=== PATIENT | male | born 1935 | race Caucasian/White ===

== ENCOUNTER 2016-04-12 10:21 | Outpatient (RCR) | payer MEDICARE ==
--- OUTSIDE RECORDS SUMMARY | 2016-03-30 13:36 | XMS REPORT | Continuity of Care Document ---
Author Author [facility] Organization [facility] Address Unknown Phone Unavailable Care Team Providers Care Ferryboat Helper Name Role Phone GLENIS TUCKER DO PCP Insurance Providers Payer Name Policy Number Subscriber Name Relationship Wps Medicare [id number] Micky Pascal 18 Self / Same As Patient Blue [employer] Mc[employer] Supp [id number] Alton Pascal 18 Self / Same As Patient Advance Directives Directive Response Recorded Date/Time Advance Directives No 09/29/14 12:12pm Health Care Power of Chemical Waste Management Technician Y 09/29/14 12:12pm Organ Donor Yes 09/29/14 12:12pm Resuscitation Status DNR-Pt Request 09/29/14 12:12pm Problems No known problems or medical conditions. Medications Medication Dose Route Sig Days/Qty Instructions Order Date Discontinued Date Status Glimepiride 2 Mg PO 07,16 11/24/06 09/29/14 Discontinued Metformin HCl 1,000 Mg PO DAILY 11/24/06 09/29/14 Discontinued [Micardis Hct] 11/24/06 01/29/10 Discontinued [minoxidil] 11/24/06 01/29/10 Discontinued [cartia xt] 11/24/06 01/29/10 Discontinued Metoprolol Succinate 11/24/06 03/10/08 Discontinued Furosemide 40 Mg PO DAILY 11/24/06 08/20/13 Discontinued [klor-con 8 meq] 11/24/06 01/29/10 Discontinued Simvastatin 80 Mg PO DAILY 11/24/06 01/29/10 Discontinued Clopidogrel Bisulfate 75 Mg PO DAILY 11/24/06 09/29/14 Discontinued Aspirin 81 Mg PO DAILY 11/24/06 Active [ambien cr] PO BEDTIME PRN 11/24/06 07/08/11 Discontinued Gabapentin 400 Mg PO BEDTIME PRN 11/24/06 09/29/14 Discontinued Acetaminophen/Hydrocodone Bitart (Lorcet 5/325MG) 11/24/0602/05 Discontinued [Viagra] 11/24/06 03/10/08 Discontinued [Percocet 5/325] 11/24/06 03/10/08 Discontinued Cyclobenzaprine HCl 11/24/06 03/10/08 Discontinued Potassium Chloride 8 Meq PO DAILY 01/29/10 09/29/14 Discontinued Lisinopril/Hydrochlorothiazide 1 Tab PO DAILY 2 TABS DAILY 01/29/10 Discontinued Metoprolol Succinate (Metoprolol ER 25mg) 25 Mg PO DAILY 01/29/10 Discontinued [Simvastatin ] 40 Mg PO DAILY 01/29/10 07/08/11 Discontinued Glimepiride 1 Mg PO DAILY@DINNER 01/30/10 09/12/11 Discontinued [place]-3 Fatty Acids/Fish Oil 1 Each PO DAILY 01/30/10 07/08/11 Discontinued Cholecalciferol 2,000 Unit PO DAILY 01/30/10 Active Niacin 1,000 Mg PO DAILY 07/08/11 09/29/14 Discontinued Rosuvastatin Calcium 20 Mg PO DAILY 07/08/11 Active Nebivolol Hcl 10 Mg PO DAILY 07/08/11 Active Zolpidem Tartrate 10 Mg PO BEDTIME 07/11/11 09/29/14 Discontinued Calcium/Vitamin D 1 Tab PO TWICE A DAY 09/12/11 08/20/13 Discontinued Hydrochlorothiazide 12.5 Mg PO DAILY 09/14/11 09/29/14 Discontinued Lisinopril 20 Mg PO DAILY 09/14/11 09/29/14 Discontinued Pantoprazole Sod 40 Mg PO DAILY 09/14/11 08/20/13 Discontinued Insulin Glargine,Hum.rec.anlog 45 Unit SQ BEDTIME 08/20/13 09/29/14 Discontinued Donepezil HCl 1 Tab PO BEDTIME 08/20/13 09/29/14 Discontinued Memantine 10 Mg PO TWICE A DAY 08/20/13 Active Levothyroxine Sodium 1 Each PO DAILY 08/20/13 09/29/14 Discontinued Bicalutamide 50 Mg PO DAILY 08/20/13 Active Fish Oil 1,000 Mg PO DAILY 08/20/13 Active Potassium Chloride 8 Meq PO DAILY 09/29/14 Active Donepezil Hcl 10 Mg PO BEDTIME 09/29/14 Active Metformin Hcl 1,000 Mg PO DAILY TAKES 2 (500MG) TABLETS 09/29/14 Active Gabapentin 400 Mg PO BEDTIME 09/29/14 Active Clopidogrel Bisulfate 75 Mg PO DAILY 09/29/14 Active Insulin Glargine 50 Units SC BEDTIME 09/29/14 Active Insulin Aspart 8 Units SC BEFORE MEALS 09/29/14 Active Polysaccharide Iron Complex 150 Mg PO DAILY 09/29/14 09/29/14 Discontinued Levothyroxine Sodium 75 Mcg PO DAILY 09/29/14 Active Lisinopril/Hydrochlorothiazide 1 Tab PO TWICE A DAY 09/29/14 Active Amoxicillin/Clavulanate Potassium 1 Each PO TWICE A DAY 10 Qty Active Azithromycin (Zpak) 1 Tab PO DAILY 3 Qty 09/30/14 Active Social History Social History Problem Response Recorded Date/Time Alcohol Use Rarely Uses 09/29/2014 6:20pm Recreational Drug Use No 09/29/2014 6:20pm Recent Foreign Travel Yes 09/29/2014 6:20pm Recent Infectious Disease Exposure No 09/29/2014 6:20pm Hospitalization with Isolation Denies 09/30/2014 11:55am Sexually Transmitted Disease No 09/29/2014 6:20pm HIV/AIDS No 09/29/2014 6:20pm Smoking Status Former Smoker 09/29/2014 12:13pm Do you dip or chew tobacco? No 09/29/2014 12:13pm Query Response Start Date Stop Date Smoking Status Former Smoker 09/26/1989 Hospital Discharge Instructions Patient Instructions Physician Instructions New, Converted or Re-Newed RX: Transmitted to Pharmacy Goal/Follow Up Appt: Dr Tucker , 10/02/14 at 1100. Discharge Diet: ADA Diet Activity as Tolerated: Yes Care Plan Goal:: Dr Tucker , 10/02/14 at 1100. Plan of Care Discharge Date 09/30/14 11:45am Disposition 30 STILL A PATIENT Instructions/Education Provided Bacterial Pneumonia (ED) Prescriptions See Medications Section Functional Status Query Response Date Recorded Comprehension Ability Understands Concepts September 30, 2014 8:26am Allergies, Adverse Reactions, Alerts Allergen Type Severity Reaction Status Last Updated Oxycodone Allergy Mild Active 03/13/08 Acetaminophen Allergy Mild Active 03/13/08 Meperidine Allergy Mild ITCHING Active 01/29/10 Immunizations Name Given Type Date of Pneumonia Vaccine 07/30/10 Historical Hepatitis A No Historical Hepatitis B No Historical Tetanus Booster (TDap) Unknown Historical Vital Signs Acute Vital Signs Vital Response Date/Time Temperature (Fahrenheit) 97.2 degrees F (97.6 - 99.5) Temperature (Calculated Celsius) 36.35384 degrees C (36.4 - 37.5) Temperature Source Temporal Pulse Rate (adult) 65 bpm (60 - 90) Respiratory Rate 20 bpm (12 - 24) O2 Sat by Pulse Oximetry 93 % (88 - 100) Blood Pressure 146/77 mm Hg Pain Pain Intensity 0 Height (Feet) 5 feet Height (Inches) 5.00 inches Height (Calculated Centimeters) 165.751638 cm Weight (Pounds) 222 pounds Weight (Calculated Grams) 004816.507 gm Weight (Calculated Kilograms) 100.305594 kilograms Calculated BMI 36.61 Results Laboratory Results Test Name Result Units Flags Reference Collection Date/Time Result Date/ Time Comments White Blood Count 10.6 10^3/uL 4.3-11.0 09/30/2014 6:33am 09/30/2014 6: 42am Red Blood Count 4.70 10^6/uL 4.35-5.85 09/30/2014 6:33am 09/30/2014 6: 42am Hemoglobin 13.0 G/DL L 13.3-17.7 09/30/2014 6:33am 09/30/2014 6:42am Hematocrit 37 % L 40-54 09/30/2014 6:33am 09/30/2014 6:42am Mean Corpuscular Volume 79 FL L 80-99 09/30/2014 6:33am 09/30/2014 6: 42am Mean Corpuscular Hemoglobin 28 PG 25-34 09/30/2014 6:33am 09/30/2014 6: 42am Mean Corpuscular Hemoglobin Concent 35 G/DL 32-36 09/30/2014 6:33am 06/2014 6:42am Red Cell Distribution Width 13.4 % 10.0-14.5 09/30/2014 6:332014 6:42am Platelet Count 230 10^3/uL 130-400 09/30/2014 6:33am 09/30/2014 6:42am Mean Platelet Volume 9.1 FL 7.4-10.4 09/30/2014 6:33am 09/30/2014 6: 42am Neutrophils (%) (Auto) 69 % 42-75 09/30/2014 6:33am 09/30/2014 6:42am Lymphocytes (%) (Auto) 17 % 12-44 09/30/2014 6:33am 09/30/2014 6:42am Monocytes (%) (Auto) 13 % H 0-12 09/30/2014 6:33am 09/30/2014 6:42am Eosinophils (%) (Auto) 1 % 0-10 09/30/2014 6:33am 09/30/2014 6:42am Basophils (%) (Auto) 0 % 0-10 09/30/2014 6:09/30/2014 6:42am Neutrophils # (Auto) 7.3 X 10^3 1.8-7.8 09/30/2014 6:33am 09/30/2014 6: 42am Lymphocytes # (Auto) 1.8 X 10^3 1.0-4.0 09/30/2014 6:33am 09/30/2014 6: 42am Monocytes # (Auto) 1.3 X 10^3 H 0.0-1.0 09/30/2014 6:33am 09/30/2014 6: 42am Eosinophils # (Auto) 0.1 10^3/uL 0.0-0.3 09/30/2014 6:33am 09/30/2014 6 :42am Basophils # (Auto) 0.0 10^3/uL 0.0-0.1 09/30/2014 6:33am 09/30/2014 6: 42am Urine Color YELLOW 09/29/2014 8:25pm 09/29/2014 9:16pm Urine Clarity SLIGHTLY CLOUDY 09/29/2014 8:25pm 09/29/2014 9:16pm Urine pH 5 5-9 09/29/2014 8:25pm 09/29/2014 9:16pm Urine Specific [place] 1.015 * 1.016-1.022 09/29/2014 8:25pm 2014 9:16pm Urine Protein 2+ * NEGATIVE 09/29/2014 8:25pm 09/29/2014 9:16pm Urine Glucose (UA) NEGATIVE NEGATIVE 09/29/2014 8:25pm 09/29/2014 9: 16pm Urine RBC (Auto) 2+ * NEGATIVE 09/29/2014 8:25pm 09/29/2014 9:16pm Urine Ketones NEGATIVE NEGATIVE 09/29/2014 8:25pm 09/29/2014 9:16pm Urine Nitrite NEGATIVE NEGATIVE 09/29/2014 8:25pm 09/29/2014 9:16pm Urine Bilirubin NEGATIVE NEGATIVE 09/29/2014 8:25pm 09/29/2014 9: 16pm Urine Urobilinogen 1 MG/DL NORMAL 09/29/2014 8:25pm 09/29/2014 9:16pm Urine Leukocyte Esterase NEGATIVE NEGATIVE 09/29/2014 8:25pm 2014 9:16pm Urine RBC 0-2 /HPF 09/29/2014 8:25pm 09/29/2014 9:16pm Urine WBC RARE /HPF 09/29/2014 8:25pm 09/29/2014 9:16pm Urine Bacteria NEGATIVE /HPF 09/29/2014 8:25pm 09/29/2014 9:16pm Urine Squamous Epithelial Cells 0-2 /HPF 09/29/2014 8:25pm 2014 9:16pm Urine Crystals NONE /LPF 09/29/2014 8:25pm 09/29/2014 9:16pm Urine Casts NONE /LPF 09/29/2014 8:25pm 09/29/2014 9:16pm Urine Mucus NEGATIVE /LPF 09/29/2014 8:25pm 09/29/2014 9:16pm Urine Culture Indicated NO 09/29/2014 8:25pm 09/29/2014 9:16pm Sodium Level 137 MMOL/L 135-145 09/30/2014 6:33am 09/30/2014 7:02am Potassium Level 3.7 MMOL/L 3.6-5.0 09/30/2014 6:33am 09/30/2014 7:02am Chloride Level 103 MMOL/L 98-107 09/30/2014 6:33am 09/30/2014 7:02am Carbon Dioxide Level 23 MMOL/L 21-32 09/30/2014 6:33am 09/30/2014 7: 02am Blood Urea Nitrogen 11 MG/DL 7-18 09/30/2014 6:33am 09/30/2014 7:02am Creatinine 0.81 MG/DL 0.60-1.30 09/30/2014 6:33am 09/30/2014 7:02am BUN/Creatinine Ratio 14 09/30/2014 6:33am 09/30/2014 7:02am Estimat Glomerular Filtration Rate > 60 09/30/2014 6:33am 2014 7:02am GFR INTERPRETIVE DATA UNITS FOR ESTIMATED GFR (eGFR): mL/min/1.73 M2 REFERENCE RANGE FOR ESTIMATED GFR (eGFR) eGFR NORMAL eGFR >60 MODERATELY DECREASED eGFR 30-59 SEVERLY DECREASED eGFR 15-29 KIDNEY FAILURE <15 (OR DIALYSIS) Glucose Level 155 MG/DL H 70-105 09/30/2014 6:33am 09/30/2014 7:02am Glucometer 189 MG/DL H 70-110 09/30/2014 11:17am 09/30/2014 11:25am Calcium Level 9.5 MG/DL 8.5-10.1 09/30/2014 6:33am 09/30/2014 7:02am Total Bilirubin 0.7 MG/DL 0.1-1.0 09/30/2014 6:33am 09/30/2014 7:02am Alkaline Phosphatase 73 U/L 40-136 09/30/2014 6:33am 09/30/2014 7:02am Aspartate Amino Transf (AST/SGOT) 33 U/L 5-34 09/30/2014 6:33am 2014 7:02am Alanine Aminotransferase (ALT/SGPT) 19 U/L 0-55 09/30/2014 6:33am 09/30 7:02am Troponin I < 0.30 NG/ML <0.30 09/29/2014 12:15pm 09/29/2014 12:54pm B-Type Natriuretic Peptide 91.4 PG/ML <100.0 09/29/2014 12:15pm 2014 12:55pm Total Protein 7.1 G/DL 6.4-8.2 09/30/2014 6:33am 09/30/2014 7:02am Albumin 3.6 G/DL 3.2-4.5 09/30/2014 6:33am 09/30/2014 7:02am Procedures Procedure Status Date Provider(s) Tracing only of electrocardiogram completed 09/29/14 GLENIS TUCKER DO Encounters Encounter Location Date/Time Discharged Inpatient [facility] 09/29/14 11:40am Registered Recurring [facility] 09/26/14 12:31pm
[~2016-04-12 10:21] MED LIST: ACHD5005; ACYC400T PO; AMBIEN PO; AMOX-355 PO; AMOX500T2 PO; ASP81CT PO; AZIT-21 PO; BICA50TA PO; CALC-793 PO; CHOL10003 PO; CLOP75TA28 PO; CLPD75T PO; CYCL10TA45; DNPZ10T PO; DONE10TA41 PO; FRSM40T PO; GABA-490 PO; GBPN100C PO; GLMP1T PO; GLMP2T PO; HYDR12.56 PO; INSU100C4 SQ; INSU100I10 SC; INSU100I14 SC; IRON150C13 PO; KLOR CON 8 MEQ; LEVO75TA6 PO; LISI1TAB PO; LISI1TAB8 PO; LSNP20T PO; LVT.025T PO; MEMA10TA PO; METF-144 PO; MICARDIS HCT; MTF500TCR PO; MTP25TSR; MTP25TSR PO; NFNEB10T PO; NIA500ERT PO; OMEG1CAP51 PO; OMG1KC PO; PERCOCET 5/325; PNT40TEC PO; POTA8TAB PO; POTA8TAB6 PO; PRD20T PO; ROSU20TA14 PO; SIMVASTATIN PO; SMV20T PO; VIAGRA; ZLP10T PO; cartia xt; minoxidil
[2016-04-16] MEDS ORDERED: RIVA1PAT XX (11:33)
[2016-04-16] MEDS ORDERED: NIAC100045 PO (11:33)
== END 2016-05-03 11:08 | disposition home or self-care (01) ==
PROVIDERS: ATTEND Internal Medicine
DX: G51.0 Bell's palsy (principal)

== ENCOUNTER 2016-09-07 12:47 | Outpatient (CLI) | payer MEDICARE ==
[~2016-09-07] VITALS: Ht 167.6 cm; Wt 99.9 kg
[~2016-09-07 12:47] MED LIST changes: +NIAC100045 PO; +RIVA1PAT XX
[2016-09-07 12:50] VITALS: BP 127/66
[2016-09-07] MEDS ORDERED: IRON SUCROSE 200 MG/NS 100 ML (IVPB) IV ONE ×2 (13:30)
[2016-09-07] MEDS ORDERED: METO-351 PO (20:42)
== END 2016-09-07 15:00 | disposition home or self-care (01) ==
LOC: SDC 12:47
PROVIDERS: ATTEND Internal Medicine
DX: D50.9 Iron deficiency anemia, unspecified (principal)
CPT/HCPCS: 96365

== ENCOUNTER → 2017-02-20 | Outpatient (CLI) | payer MEDICARE ==
[~2017-02-20] MED LIST changes: +METO-351 PO
== END ==
LOC: WOUNDCARE 08:12
PROVIDERS: ATTEND Surgery
DX: E11.621 Type 2 diabetes mellitus with foot ulcer (principal); L97.512 Non-pressure chronic ulcer of other part of right foot with fat layer exposed; F03.90 Unspecified dementia, unspecified severity, without behavioral disturbance, psychotic disturbance, mood disturbance, and anxiety
CPT/HCPCS: 99213

== ENCOUNTER → 2017-02-27 | Outpatient (CLI) | payer MEDICARE | LOC: WOUNDCARE 08:56 | PROVIDERS: ATTEND Surgery | DX: E11.621 Type 2 diabetes mellitus with foot ulcer (principal); L97.512 Non-pressure chronic ulcer of other part of right foot with fat layer exposed; F03.90 Unspecified dementia, unspecified severity, without behavioral disturbance, psychotic disturbance, mood disturbance, and anxiety | CPT/HCPCS: 11042 ==

== ENCOUNTER → 2017-02-27 | Outpatient (CLI) | payer MEDICARE | LOC: CARD 10:08 | PROVIDERS: ATTEND Internal Medicine Cardiovascular Disease | DX: I25.10 Atherosclerotic heart disease of native coronary artery without angina pectoris (principal); I10 Essential (primary) hypertension; E78.2 Mixed hyperlipidemia; I34.0 Nonrheumatic mitral (valve) insufficiency | CPT/HCPCS: 93306 ==

== ENCOUNTER 2017-05-05 12:46 | Outpatient (RCR) | payer MEDICARE ==
[2017-04-28 15:01] VITALS: BP 140/74
[~2017-05-05] VITALS: Ht 165.1 cm; Wt 99.8 kg
[~2017-05-05 12:46] MED LIST changes: +FERRIC CARBOXYMALTOSE 750 MG /NS 250 ML IV NR
[2017-05-05 13:05] VITALS: BP 152/79
[2017-05-05] MEDS ORDERED: FERRIC CARBOXYMALTOSE 750 MG /NS 250 ML IV NR ×2 (13:15)
[2017-05-05 13:26] VITALS: BP 152/79
== END 2017-07-27 | disposition home or self-care (01) ==
LOC: SDC 12:46
PROVIDERS: ATTEND Internal Medicine
DX: D50.9 Iron deficiency anemia, unspecified (principal)
CPT/HCPCS: 96365

== ENCOUNTER 2018-04-06 09:17 | Outpatient (RCR) | payer MEDICARE ==
[2018-03-28] MEDS: IRON SUCROSE 200 MG/10 ML (VENOFER) VIAL IV SCH (13:20)
[2018-03-28 13:55] VITALS: BP 114/67
[2018-03-30 11:45] VITALS: BP 146/66
[2018-03-30] MEDS: IRON SUCROSE 200 MG/10 ML (VENOFER) VIAL IV SCH (11:48)
[2018-04-02 10:45] VITALS: BP 125/70
[2018-04-02] MEDS: IRON SUCROSE 200 MG/10 ML (VENOFER) VIAL IV SCH (10:52)
[2018-04-04 10:45] VITALS: BP 129/64
[2018-04-04] MEDS: IRON SUCROSE 200 MG/10 ML (VENOFER) VIAL IV SCH (10:52)
[~2018-04-06] VITALS: Ht 165.1 cm; Wt 101.6 kg
[2018-04-06] MEDS: IRON SUCROSE 200 MG/10 ML (VENOFER) VIAL IV SCH (09:15)
[~2018-04-06 09:17] MED LIST changes: -FERRIC CARBOXYMALTOSE 750 MG /NS 250 ML IV NR; +IRON SUCROSE 200 MG/10 ML (VENOFER) VIAL IV ONE
[2018-04-06 09:20] VITALS: BP 153/79
== END 2018-04-06 10:25 | disposition home or self-care (01) ==
LOC: SDC 09:17
PROVIDERS: ATTEND Internal Medicine
DX: D50.8 Other iron deficiency anemias (principal)
CPT/HCPCS: 96365

== ENCOUNTER 2018-07-09 16:07 | Observation (INO) | payer MEDICARE ==
[~2018-07-09] VITALS: Ht 165.1 cm; Wt 98.9 kg
[~2018-07-09 16:07] MED LIST changes: -IRON SUCROSE 200 MG/10 ML (VENOFER) VIAL IV ONE
[2018-07-09] MEDS ORDERED: NS IV 1000 ML 1,000 ML IV SCH (16:16)
[2018-07-09] MEDS ORDERED: diphenhydrAMINE 25 MG TAB (BENADRYL) PO PRN (16:30)
[2018-07-09] MEDS ORDERED: CALCIUM CARBONATE 500 MG (TUMS) TAB.CHEW PO PRN (16:30)
[2018-07-09] MEDS ORDERED: DOCUSATE SODIUM 100 MG (COLACE) CAP PO PRN (16:30)
[2018-07-09] MEDS ORDERED: ACETAMINOPHEN 500 MG TAB (TYLENOL) PO PRN (16:30)
[2018-07-09] MEDS ORDERED: guaiFENesin/DM (ROBITUSSIN DM) 10 ML UDC PO PRN (16:30)
[2018-07-09] MEDS ORDERED: cefTRIAXone FOR IV USE 1,000 MG in WATER (STERILE) FOR INJECTION 10 ML IV SCH (16:30)
[2018-07-09] MEDS ORDERED: ALPRAZolam 0.25 MG (XANAX) TAB PO PRN (16:30)
[2018-07-09] MEDS ORDERED: HALOPERIDOL 5 MG/ML (HALDOL) AMP IM PRN (16:30)
[2018-07-09] MEDS ORDERED: MELATONIN 3 MG TABLET PO PRN (16:30)
[2018-07-09] MEDS ORDERED: LORazepam INJ 2 MG/ML (ATIVAN) VIAL IVP PRN (16:30)
[2018-07-09] MEDS ORDERED: ONDANSETRON 4 MG/2 ML (SDV) Z0FRAN IVP PRN (16:30)
[2018-07-09 17:10] VITALS: BP 106/56
[2018-07-09 17:38] LABS: BASOPHILS % (AUTO) 0 % (0-10); EOSINOPHILS % (AUTO) 0 % (0-10); HEMATOCRIT 32 % (40-54); LYMPHOCYTES # (AUTO) 1.1 X 10^3 (1.0-4.0); LYMPHOCYTES % (AUTO) 11 % (12-44); MEAN CORPUSCULAR HEMOGLOBIN 26 PG (25-34); MEAN CORPUSCULAR HGB CONC 34 G/DL (32-36); MEAN CORPUSCULAR VOLUME 78 FL (80-99); MEAN PLATELET VOLUME 10.2 FL (7.4-10.4); MONOCYTES % (AUTO) 11 % (0-12); NEUTROPHILS # (AUTO) 7.4 X 10^3 (1.8-7.8); NEUTROPHILS % (AUTO) 78 % (42-75); PLATELET COUNT 194 10^3/uL (130-400); RED CELL DISTRIBUTION WIDTH 15.7 % (10.0-14.5); WHITE BLOOD COUNT 9.5 10^3/uL (4.3-11.0)
[2018-07-09 17:55] LABS: CREATININE SERUM 1.61 MG/DL (0.60-1.30); POTASSIUM 3.5 MMOL/L (3.6-5.0)
[2018-07-09 17:56] LABS: ALBUMIN 4.2 GM/DL (3.2-4.5); BILIRUBIN,TOTAL 0.6 MG/DL (0.1-1.0); TOTAL PROTEIN 7.4 GM/DL (6.4-8.2)
[2018-07-09] MEDS ORDERED: KCL 10 MEQ TAB (MICRO K) PO NR (18:00)
[2018-07-09] MEDS ORDERED: AZITHROMYCIN INJECTION 500 MG in NS (IVPB) 250 ML IV SCH (18:00)
[2018-07-09] MEDS ORDERED: ENOXAPARIN 40 MG/0.4 ML (LOVENOX) SYR SC SCH (18:00)
[2018-07-09] MEDS ORDERED: AMLO5TAB9 PO (18:31)
[2018-07-09] MEDS ORDERED: TOBR5DRO12 OS (18:31)
[2018-07-09] MEDS: POTASSIUM CHLORIDE INJ 10 MEQ in NS IV 1000 ML 1,000 ML IV SCH (18:43)
--- NOTE | 2018-07-09 18:49 | NUR ---
ALTON NAIDA admitted to room 419-1, with an admitting diagnosis of DEHYDRATION , on 07/09/18 from via WHEELCHAIR, DIRECT ADMIT, accompanied by .ALTON PASCAL AND SPOUSE introduced to surroundings, call light, bed controls, phone, TV, temperature control, lights, meal times, smoking policy, visitor policy, side rail policy, bathrooms and showers. Patient Rights given to patient in the handbook.ALTON PASCAL verbalizes understanding that [facility] is not responsible for the loss or damage to any personal effects or valuables that are kept in the patients posession during their hospitalization.
--- NOTE | 2018-07-09 19:04 | Diagnostic Imaging Report ---
INDICATION: Fever. FINDINGS: Two views of the chest show normal heart size and vascularity. The lungs are clear. There is no effusion or pneumothorax. There are changes of prior CABG. There is no acute bony abnormality. IMPRESSION: No acute abnormality is seen with no significant change from 04/16/2016. Dictated by: Dictated on workstation # [id number]
[2018-07-09 20:00] VITALS: BP 100/53
[2018-07-09] MEDS: RT-ALBUTEROL SULF 2.5 MG/3 ML PRE-MIX VIAL INH SCH (20:54)
[2018-07-10 00:05] VITALS: BP 127/51
[2018-07-10 04:30] VITALS: BP 154/85
--- NOTE | 2018-07-10 05:30 | NUR ---
request that leave IV out until she can talk to Dr Villasenor this am.
[2018-07-10] MEDS: POTASSIUM CHLORIDE INJ 10 MEQ in NS IV 1000 ML 1,000 ML IV SCH (06:00)
[2018-07-10 06:09] LABS: BASOPHILS % (AUTO) 0 % (0-10); EOSINOPHILS % (AUTO) 1 % (0-10); HEMATOCRIT 32 % (40-54); HEMOGLOBIN 10.3 G/DL (13.3-17.7); LYMPHOCYTES % (AUTO) 19 % (12-44); MEAN CORPUSCULAR HEMOGLOBIN 25 PG (25-34); MEAN CORPUSCULAR HGB CONC 32 G/DL (32-36); MEAN CORPUSCULAR VOLUME 78 FL (80-99); MEAN PLATELET VOLUME 10.4 FL (7.4-10.4); MONOCYTES # (AUTO) 0.6 X 10^3 (0.0-1.0); MONOCYTES % (AUTO) 12 % (0-12); NEUTROPHILS # (AUTO) 3.5 X 10^3 (1.8-7.8); NEUTROPHILS % (AUTO) 68 % (42-75); PLATELET COUNT 153 10^3/uL (130-400); RED CELL DISTRIBUTION WIDTH 15.4 % (10.0-14.5); WHITE BLOOD COUNT 5.2 10^3/uL (4.3-11.0)
[2018-07-10 06:25] LABS: ALANINE AMINOTRANSFERASE 21 U/L (0-55); ALBUMIN 3.9 GM/DL (3.2-4.5); ALKALINE PHOSPHATASE 52 U/L (40-136); BILIRUBIN,TOTAL 0.4 MG/DL (0.1-1.0); BUN/CREATININE RATIO 20; CALCIUM 8.7 MG/DL (8.5-10.1); CARBON DIOXIDE 23 MMOL/L (21-32); CHLORIDE 104 MMOL/L (98-107); CREATININE SERUM 1.13 MG/DL (0.60-1.30); GFR ESTIMATED > 60; GLUCOSE 102 MG/DL (70-105); POTASSIUM 2.9 MMOL/L (3.6-5.0); SODIUM 140 MMOL/L (135-145); TOTAL PROTEIN 6.8 GM/DL (6.4-8.2)
[2018-07-10] MEDS: RT-ALBUTEROL SULF 2.5 MG/3 ML PRE-MIX VIAL INH SCH (06:56)
[2018-07-10] MEDS ORDERED: KCL 10 MEQ TAB (MICRO K) PO SCH (07:00)
[2018-07-10 08:00] VITALS: BP 128/72
[2018-07-10] MEDS ORDERED: METF500T8 PO (09:05)
[2018-07-10] MEDS ORDERED: CLOP75TA28 PO (09:05)
[2018-07-10] MEDS ORDERED: GABA-488 PO (09:05)
[2018-07-10] MEDS ORDERED: POTA8TAB6 PO (09:05)
[2018-07-10] MEDS ORDERED: BICA50TA5 PO (09:05)
[2018-07-10] MEDS ORDERED: INSU100I10 SC (09:05)
[2018-07-10] MEDS ORDERED: NFNEB10T PO (09:05)
[2018-07-10] MEDS ORDERED: LEVO75TA6 PO (09:05)
[2018-07-10] MEDS ORDERED: INSU100I14 SC (09:05)
[2018-07-10] MEDS ORDERED: MEMA10TA22 PO (09:05)
[2018-07-10] MEDS ORDERED: ASPI-983 PO (09:05)
[2018-07-10] MEDS ORDERED: CHOL20002 PO (09:05)
[2018-07-10] MEDS ORDERED: ROSU5TAB12 PO (09:05)
[2018-07-10] MEDS ORDERED: DONE10TA41 PO (09:05)
[2018-07-10] MEDS ORDERED: LISI1TAB8 PO (09:05)
--- NOTE | 2018-07-10 09:14 | NUR ---
WENT OVER THE EXT MED HX WITH THE PATIENTS . SHE HAD SOME BOTTLES WITH HER WELL A MEDICATION LIST WELL. THE PATIENT IS PAST DUE FOR REFILL ON A FEW MEDICATIONS, SHE DOES NOT HAVE THE BOTTLES WITH HER EITHER HOWEVER THEY ARE ON HER LIST AND SHE STATES HE DOES TAKE THEM DAILY DESPITE THE PAST DUE FILL DATE. I LEFT THEM ON THE MED REC AND NOTED THEIR LAST FILLED DATES: 01-11-18 NIACIN ER 1000MG #90 01-11-18 LEVOTHYROXINE 75MCG DAILY #90 (DOES HAVE BOTTLE WITH OLDER DATE, VERY FULL) 01-03-18 GABAPENTIN 300MG HS #90 SHE ALSO STATES THE PATIENT TAKES ASPIRIN 81MG DAILY AND VITAMIN D DAILY OTC.
--- NOTE | 2018-07-10 11:09 | Short Stay Summary-Hospitalist ---
History of Present Illness HPI/Chief Complaint Chief compliant: Acute illness HPI: This is a 82yoWM clinic pt of mine for the past 15 years with a past medical history of CAD, previous bypass, DM, severe dementia that resides at home with his who presented to my office acutely ill and dehydrated. Pt was found to have Influenza A and acute renal failure with creatinine of 1.6 so he was given empiric antibiotic for bacterial bronchitis. Chest X-ray did not reveal any infiltrate. He tolerated aggressive IV fluids along with nebulizer treatments and oxygen supplementation and overall did well enough but he was getting agitated out of his familiar environment so he was DC in improved condition and will have close follow up with me in one week. Source: family Exam Limitations: other (dementia, confusion) Date Seen 07/10/18 Time Seen by a Provider: 10:00 Attending Physician Halie Villasenor DO PCP Halie Villasenor DO Referring Physician Date of Admission Jul 09, 2018 at 17:00 Home Medications & Allergies Home Medications Reviewed patient Home Medication Reconciliation performed by pharmacy medication reconciliations geospatial technician and/or nursing. Patients Allergies have been reviewed. Allergies Allergies Coded Allergies meperidine (Unverified Allergy, Mild, ITCHING, 01/29/10) Past Lkoednm-Hhmbcz-Riktye Hx Past Med/Social Hx: Reviewed Nursing Past Med/Soc Hx, Reviewed and Corrections made Patient Social History Marrital Status: Employed/Student: retired Alcohol Use: Denies Use Recreational Drug Use: No Smoking Status: Never a Smoker Physical Abuse Screen: No Sexual Abuse: No Recent Foreign Travel: No Contact w/other who traveled: No Recent Hopitalizations: Yes Recent Infectious Disease Expo: No Immunizations Up To Date Tetanus Booster (TDap): More than 5yrs Pediatric: No Date of Pneumonia Vaccine: Jul 09, 2012 Date of Influenza Vaccine: Jan 29, 2018 Seasonal Allergies Seasonal Allergies: No Past Medical History Surgeries: Adenoidectomy, Appendectomy, Cardiac, CABG, Orthopedic, Prostatectomy, Tonsillectomy, Vasectomy Respiratory: Pneumonia, Sleep Apnea Currently Using CPAP: No Currently Using BIPAP: No Cardiac: Coronary Artery Disease, High Cholesterol, Hypertension Neurological: Dementia, Neuropathy, Stroke, TIA Reproductive: Yes Sexually Transmitted Disease: No HIV/AIDS: No Genitourinary: Prostate Problems Musculoskeletal: Arthritis, Chronic Back Pain Endocrine: Diabetes, Insulin dep, Hypothyroidsim Loss of Vision: Denies Hearing Impairment: Hard of Hearing, Bilateral Hearing Aide Cancer: Prostate Did You Recieve Any Treatments: No Psychosocial: Sleep Difficulties History of Blood Disorders: No Family History Alzheimer's disease G8 SISTER Arthritis G8 BROTHER G8 BROTHER G8 BROTHER G8 BROTHER Deafness or hearing loss G8 BROTHER G8 BROTHER G8 BROTHER G8 BROTHER G8 BROTHER G8 BROTHER Dementia G8 SISTER Diabetes mellitus G8 BROTHER G8 BROTHER G8 SISTER Seizure disorder G8 SISTER No Family History of: AIDS Abdominal aortic aneurysm [place]'s disease Alcoholism Aphasia Asthma Cancer of mouth Cardiovascular disease Cataracts Colon cancer Completed stroke Congenital disease Congenital heart disease Coronary thrombosis Cystic fibrosis Drug abuse Dysphasia Fibrocystic disease of breast Gastroenteritis Glaucoma Headache disorder Hypercholesterolemia Hypertension Infertility Kidney disease Myocardial infarction Neoplasm Not obtainable due to adoption Osteoporosis Parkinson's disease Prostate cancer Psychosocial problem Respiratory disorder Severe allergy Thyroid disease Tuberculosis Visual disorder Heart Disease Review of Systems Constitutional: see HPI, dizziness, fever, weakness EENTM: no symptoms reported Respiratory: cough Cardiovascular: no symptoms reported Gastrointestinal: loss of appetite Genitourinary: decreased output Musculoskeletal: no symptoms reported Skin: no symptoms reported Psychiatric/Neurological: Other (increased confusion) Physical Exam Physical Exam Vital Signs Vital Signs - First Documented Capillary Refill : Height, Weight, BMI Height: 5'5.00" Weight: 218lbs. 0.0oz. 98.500721dl; 36.3 BMI Method:Stated General Appearance: WD/WN, Chronically ill, Mild Distress Eyes: Bilateral Eye Normal Inspection, Bilateral Eye PERRL HEENT: PERRL/EOMI, Normal ENT Inspection, Pharynx Normal, Other (dry MM) Neck: Full Range of Motion, Normal Inspection, Non Tender, Supple, Carotid Bruit Respiratory: Chest Non Tender, No Accessory Muscle Use, No Respiratory Distress , Decreased Breath Sounds, Wheezing Cardiovascular: Regular Rate, Rhythm, No Edema, No Gallop, No JVD, No Murmur, Normal Peripheral Pulses Gastrointestinal: Normal Bowel Sounds, No Organomegaly, No Pulsatile Mass, Non Tender, Soft Back: Normal Inspection, No CVA Tenderness, No Vertebral Tenderness Extremity: Normal Capillary Refill, Normal Inspection, Normal Range of Motion, Non Tender, No Calf Tenderness, No Pedal Edema Neurologic/Psychiatric: Alert, No Motor/Sensory Deficits, Normal Mood/Affect, Disoriented Skin: Normal Color, Warm/Dry Lymphatic: No Adenopathy Results Results/Procedures Labs Laboratory Tests 07/09/18 17:24 07/10/18 05:22 Patient resulted labs reviewed. Short Stay Diagnosis Discharge Diagnosis-Short Stay Admission Diagnosis Assessment: Subacute influenza A Acute renal failure Dehydration Wheezing Diabetes mellitus CAD previous bypass Severe dementia Plan: IV fluids Discharge back to familiar surroundings Resume all home meds Final Discharge Diagnosis Assessment: Subacute influenza A Acute renal failure Dehydration Wheezing Diabetes mellitus CAD previous bypass Severe dementia Plan: IV fluids Discharge back to familiar surroundings Resume all home meds Conclusion Plan DC home Diagnosis/Problems Diagnosis/Problems (1) Influenza A Status: Acute (2) Wheezing Status: Acute (3) Renal failure Status: Acute Qualifiers: Qualified Codes: N17.9 - Acute kidney failure, unspecified (4) Dehydration Status: Acute (5) Dementia Status: Chronic Qualifiers: Qualified Codes: G30.9 - Alzheimer's disease, unspecified; F02.80 - Dementia in other diseases classified elsewhere without behavioral disturbance Clinical Quality Measures DVT/VTE Risk/Contraindication: Risk Factor Score Per Nursin RFS Level Per Nursing on Admit: 4+=Very High HALIE VILLASENOR DO Jul 10, 2018 11:09
[2018-07-10] MEDS ORDERED: inSUlin ASPART (NovoLOG) 1 UNIT/0.01 ML (CHARGE PER UNIT) SC SCH (11:30)
[2018-07-10 12:00] VITALS: BP 128/72
--- NOTE | 2018-07-10 12:00 | NUR ---
ALTON PASCAL demonstrates understanding of discharge instructions and accurately returns instructions upon questioning. Copy of Post-Discharge Instructions given to . ALTON PASCAL is able to manage continuing needs after discharge WITH ASSISTANCE OF . Patients belongings returned to . Patient discharged from [facility] on 07/10/18 at 1200. ALTON PASCAL left floor via W/C, accompanied by STAFF AND PER AUTO.
[2018-07-10] MEDS ORDERED: inSUlin DETERMIR 1 UNIT/0.01 ML (LEVEMIR) CHARGE PER UNIT SQ SCH (21:00)
[2018-07-10] MEDS ORDERED: MEMANTINE 10 MG (NAMENDA) TABLET PO SCH (21:00)
[2018-07-10] MEDS ORDERED: NIACIN ER (NIASPAN) 500 MG TAB PO SCH (21:00)
[2018-07-10] MEDS ORDERED: HYDROCHLOROTHIAZIDE 12.5 MG (HCTZ) CAP PO SCH (21:00)
[2018-07-10] MEDS ORDERED: GABAPENTIN 300 MG (NEURONTIN) CAP PO SCH (21:00)
[2018-07-10] MEDS ORDERED: DONEPEZIL 10 MG (ARICEPT) TAB PO SCH (21:00)
[2018-07-10] MEDS ORDERED: lisINopril 20 MG (PRINIVIL) TABLET PO SCH (21:00)
[2018-07-11] MEDS ORDERED: LEVOTHYROXINE 75 MCG (LEVOTHROID) TABLET PO SCH (09:00)
[2018-07-11] MEDS ORDERED: ROSUVASTATIN 5 MG (CRESTOR) TABLET PO SCH (09:00)
[2018-07-11] MEDS ORDERED: ASPIRIN E.C. 81 MG (ECOTRIN) TAB PO SCH (09:00)
[2018-07-11] MEDS ORDERED: amLODIPine 5 MG (NORVASC) TAB PO SCH (09:00)
[2018-07-11] MEDS ORDERED: CLOPIDOGREL 75 MG (PLAVIX) TABLET PO SCH (09:00)
[2018-07-11] MEDS ORDERED: metFORMIN XR 500 MG (GLUCOPHAGE XR) TAB PO SCH (09:00)
[2018-07-11] MEDS ORDERED: NON-FORMULARY MEDICATION 1 EA EA (Potassium Chloride 8 MEQ) PO SCH (09:00)
[2018-07-11] MEDS ORDERED: VITAMIN D3 1,000 UNITS (CHOLECALCIFEROL) TABLET PO SCH (09:00)
[2018-07-11] MEDS ORDERED: NEBIVOLOL 5 MG TAB (BYSTOLIC) PO SCH (09:00)
[2018-07-11] MEDS ORDERED: NON-FORMULARY MEDICATION 1 EA EA (Bicalutamide 50 MG) PO SCH (09:00)
== END 2018-07-10 11:08 | disposition home or self-care (01) ==
LOC: 4TH 17:00 → UNDOADMOB 17:00 → 4TH 17:10 → UNDODISOB 07-10 12:00
PROVIDERS: ADMIT Internal Medicine; ATTEND Internal Medicine
DX: J10.1 Influenza due to other identified influenza virus with other respiratory manifestations (principal); R06.2 Wheezing; N17.9 Acute kidney failure, unspecified; E86.0 Dehydration; G30.9 Alzheimer's disease, unspecified; F02.80 Dementia in other diseases classified elsewhere, unspecified severity, without behavioral disturbance, psychotic disturbance, mood disturbance, and anxiety; E11.40 Type 2 diabetes mellitus with diabetic neuropathy, unspecified; Z66 Do not resuscitate; I25.10 Atherosclerotic heart disease of native coronary artery without angina pectoris; E78.00 Pure hypercholesterolemia, unspecified; I10 Essential (primary) hypertension; E03.9 Hypothyroidism, unspecified; H91.90 Unspecified hearing loss, unspecified ear; Z85.46 Personal history of malignant neoplasm of prostate; Z79.4 Long term (current) use of insulin; Z86.73 Personal history of transient ischemic attack (TIA), and cerebral infarction without residual deficits; Z95.1 Presence of aortocoronary bypass graft; Z87.01 Personal history of pneumonia (recurrent)
CPT/HCPCS: 36415; 71046; 80053; 83540; 83605; 83880; 84484; 85025; 87040; 87804; 93005; 94640; 94760; 99211; G0378

== ENCOUNTER 2019-01-25 08:57 | Outpatient (RCR) | payer MEDICARE ==
[2019-01-18] MEDS: FERRIC CARBOXYMALTOSE INJ 750 MG in NS (IVPB) 250 ML IV SCH (09:34)
[2019-01-18 11:26] VITALS: BP 110/57
[~2019-01-25] VITALS: Ht 160 cm; Wt 101.8 kg
[~2019-01-25 08:57] MED LIST changes: +AMLO5TAB9 PO; +ASPI-983 PO; +BICA50TA5 PO; +CHOL20002 PO; +GABA-488 PO; +MEMA10TA22 PO; +METF500T8 PO; +ROSU5TAB13 PO; +TOBR5DRO12 OS
[2019-01-25] MEDS: FERRIC CARBOXYMALTOSE INJ 750 MG in NS (IVPB) 250 ML IV SCH (09:20)
[2019-01-25 09:40] VITALS: BP 122/62
== END 2019-01-25 09:40 | disposition home or self-care (01) ==
LOC: SDC 08:57
PROVIDERS: ATTEND Internal Medicine
DX: E61.1 Iron deficiency (principal)
CPT/HCPCS: 96365

== ENCOUNTER 2019-08-13 10:50 | Emergency (ER) | payer MEDICARE ==
[~2019-08-13] VITALS: Ht 177 cm; Wt 95.0 kg
[~2019-08-13 10:50] MED LIST changes: +LISI1TAB25 PO; -MEMA10TA22 PO; +MEMA10TA57 PO; +METF500T19 PO; -METF500T8 PO
[2019-08-13] MEDS ORDERED: NS IV 500 ML 500 ML IV SCH (11:15)
[2019-08-13 11:19] LABS: BASOPHILS % (AUTO) 0 % (0-10); EOSINOPHILS % (AUTO) 0 % (0-10); HEMATOCRIT 34 % (40-54); HEMOGLOBIN 11.8 G/DL (13.3-17.7); LYMPHOCYTES # (AUTO) 0.8 X 10^3 (1.0-4.0); LYMPHOCYTES % (AUTO) 13 % (12-44); MEAN CORPUSCULAR HEMOGLOBIN 27 PG (25-34); MEAN CORPUSCULAR HGB CONC 35 G/DL (32-36); MEAN CORPUSCULAR VOLUME 77 FL (80-99); MEAN PLATELET VOLUME 9.8 FL (7.4-10.4); MONOCYTES # (AUTO) 0.6 X 10^3 (0.0-1.0); MONOCYTES % (AUTO) 10 % (0-12); NEUTROPHILS # (AUTO) 4.9 X 10^3 (1.8-7.8); NEUTROPHILS % (AUTO) 77 % (42-75); PLATELET COUNT 252 10^3/uL (130-400); RED CELL DISTRIBUTION WIDTH 13.4 % (10.0-14.5); WHITE BLOOD COUNT 6.4 10^3/uL (4.3-11.0)
[2019-08-13 11:21] LABS: CLARITY,URINE CLEAR; COLOR,URINE YELLOW; GLUCOSE, URINE (UA) NEGATIVE (NEGATIVE); KETONES,URINE 1+ (NEGATIVE); LEUKOCYTE ESTERASE ,URINE NEGATIVE (NEGATIVE); NITRITE,URINE NEGATIVE (NEGATIVE); PH,URINE 5.5 (5-9); PROTEIN,URINE 2+ (NEGATIVE)
--- NOTE | 2019-08-13 11:23 | ED General ---
General Chief Complaint: Altered Mental Status Stated Complaint: LETHARGY Source of Information: Patient Exam Limitations: No Limitations History of Present Illness Date Seen by Provider: Aug 13, 2019 Time Seen by Provider: 11:17 Initial Comments To ER by EMS from [facility] where he was having outpatient labs drawn and became unresponsive. Blood sugar was checked and found to be 196. He has rather advanced dementia but still lives at home with his . She reports that he has not been taking any of his medications or eating much for the past week. states that he always has a cough and is no different than usual, she states that he had a fever last week as high as 98.7 (no actual fever), and no fever today at home. Timing/Duration: 1 Week Severity: Moderate Associated Systoms: No Nausea/Vomiting Allergies and Home Medications Allergies Coded Allergies: meperidine (Unverified Allergy, Mild, ITCHING, 01/29/10) Home Medications Amlodipine Besylate 5 Mg Tablet, 5 MG PO DAILY, (Reported) Aspirin 81 Mg Tablet.dr, 81 MG PO DAILY, (Reported) Bicalutamide 50 Mg Tablet, 50 MG PO DAILY, (Reported) Cholecalciferol (Vitamin D3) 2,000 Unit Capsule, 2,000 UNIT PO DAILY, (Reported) Clopidogrel Bisulfate 75 Mg Tablet, 75 MG PO DAILY, (Reported) Donepezil HCl 10 Mg Tablet, 10 MG PO HS, (Reported) Gabapentin 300 Mg Capsule, 300 MG PO HS, (Reported) LAST FILLED #90 01-03-18 Insulin Aspart 300 Units/3 Ml Solution, 20 UNITS SC TIDAC, (Reported) Insulin Glargine,Hum.rec.anlog 100 Unit/1 Ml Insuln.pen, 60 UNITS SC HS, (Reported) Levothyroxine Sodium 75 Mcg Tablet, 75 MCG PO DAILY, (Reported) LAST FILLED #90 01-11-18 Lisinopril/Hydrochlorothiazide 1 Each Tablet, 1 TAB PO BID, (Reported) Memantine HCl 10 Mg Tablet, 10 MG PO BID, (Reported) Metformin HCl 500 Mg Tab.er.24h, 1,000 MG PO DAILY, (Reported) TAKES 2 (500MG) TABLETS Nebivolol HCl 10 Mg Tab, 10 MG PO DAILY, (Reported) Niacin 1,000 Mg Tab.er.24h, 1,000 MG PO HS, (Reported) LAST FILLED #90 01-11-18 Potassium Chloride 8 Meq Tablet.er, 8 MEQ PO DAILY, (Reported) Rosuvastatin Calcium 5 Mg Tablet, 5 MG PO DAILY, (Reported) Patient Home Medication List Home Medication List Reviewed: Yes Review of Systems Review of Systems Constitutional: see HPI, other (review of systems obtained by to the best of her ability) EENTM: see HPI Respiratory: no symptoms reported Cardiovascular: no symptoms reported Genitourinary: no symptoms reported Musculoskeletal: no symptoms reported Skin: no symptoms reported Psychiatric/Neurological: No Symptoms Reported Hematologic/Lymphatic: No Symptoms Reported Immunological/Allergic: no symptoms reported Past Zqviwym-Ebgtxn-Eweksn Hx Patient Social History Recent Hopitalizations: Yes Immunizations Up To Date Tetanus Booster (TDap): More than 5yrs PED Vaccines UTD: No Date of Pneumonia Vaccine: Jul 09, 2012 Date of Influenza Vaccine: Jan 29, 2018 Seasonal Allergies Seasonal Allergies: No Past Medical History Surgeries: Yes Adenoidectomy, Appendectomy, Cardiac, CABG, Orthopedic, Prostatectomy, Tonsillectomy, Vasectomy Respiratory: No Sleep Apnea Currently Using CPAP: No Currently Using BIPAP: No Cardiac: Yes (bypass 2005) Coronary Artery Disease, High Cholesterol, Hypertension Neurological: Yes (MALIN'S PALSY ) Dementia, Neuropathy, Stroke, TIA Reproductive Disorders: Yes Sexually Transmitted Disease: No HIV/AIDS: No Prostate Problems Gastrointestinal: No Musculoskeletal: Yes (TOTAL RT KNEE REPLACEMENT) Arthritis, Chronic Back Pain Endocrine: Yes Diabetes, Insulin dep, Hypothyroidsim HEENT: No Loss of Vision: Denies Hearing Impairment: Hard of Hearing, Bilateral Hearing Aide Cancer: Yes Prostate Did You Recieve Any Treatments: No Psychosocial: No Sleep Difficulties Integumentary: No Blood Disorders: No Family Medical History Alzheimer's disease G8 SISTER Arthritis G8 BROTHER G8 BROTHER G8 BROTHER G8 BROTHER Deafness or hearing loss G8 BROTHER G8 BROTHER G8 BROTHER G8 BROTHER G8 BROTHER G8 BROTHER Dementia G8 SISTER Diabetes mellitus G8 BROTHER G8 BROTHER G8 SISTER Seizure disorder G8 SISTER No Family History of: AIDS Abdominal aortic aneurysm Lane's disease Alcoholism Aphasia Asthma Cancer of mouth Cardiovascular disease Cataracts Colon cancer Completed stroke Congenital disease Congenital heart disease Coronary thrombosis Cystic fibrosis Drug abuse Dysphasia Fibrocystic disease of breast Gastroenteritis Glaucoma Headache disorder Hypercholesterolemia Hypertension Infertility Kidney disease Myocardial infarction Neoplasm Not obtainable due to adoption Osteoporosis Parkinson's disease Prostate cancer Psychosocial problem Respiratory disorder Severe allergy Thyroid disease Tuberculosis Visual disorder Heart Disease Physical Exam Vital Signs Vital Signs - First Documented 08/13/19 10:50 Temp 36.7 Pulse 65 Resp 24 B/P (MAP) 129/70 (89) Pulse Ox 97 Capillary Refill : Height, Weight, BMI Height: 5'5.00" Weight: 218lbs. 0.0oz. [id number]; 36.3 BMI Method:Stated General Appearance: Other (is alert but obviously confused, nonsensical talking. Smiling, pleasantly confused. Afebrile with stable vital signs. Do believe he is hallucinating, he will look at various spots in the room and begin talking. When asked who hes talking to he'll mention a name.) Eyes: Bilateral Eye Normal Inspection, Bilateral Eye PERRL, Bilateral Eye EOMI HEENT: PERRL/EOMI Neck: Full Range of Motion, Normal Inspection Respiratory: No Accessory Muscle Use, No Respiratory Distress Cardiovascular: Regular Rate, Rhythm, Normal Peripheral Pulses Gastrointestinal: Non Tender, Soft Extremity: Normal Capillary Refill, Normal Inspection Neurologic/Psychiatric: Alert Skin: Normal Color, Warm/Dry Focused Exam Lactate Level 08/13/19 11:05: Lactic Acid Level 1.55 Lactic Acid Level Laboratory Tests Test 08/13/19 11:05 Lactic Acid Level 1.55 MMOL/L (0.50-2.00) Progress/Results/Core Measures Suspected Sepsis SIRS Temperature: Pulse: Respiratory Rate: Laboratory Tests 08/13/19 11:05: White Blood Count 6.4 Blood Pressure / Mean: 08/13/19 11:05: Lactic Acid Level 1.55 Laboratory Tests 08/13/19 11:05: Creatinine 0.93, INR Comment 1.0, Platelet Count 252, Total Bilirubin 0.5 Results/Orders Lab Results Laboratory Tests Test 08/13/19 11:05 Range/Units White Blood Count 6.4 4.3-11.0 10^3/uL Red Blood Count 4.39 4.35-5.85 10^6/uL Hemoglobin 11.8 L 13.3-17.7 G/DL Hematocrit 34 L 40-54 % Mean Corpuscular Volume 77 L 80-99 FL Mean Corpuscular Hemoglobin 27 25-34 PG Mean Corpuscular Hemoglobin Concent 35 32-36 G/DL Red Cell Distribution Width 13.4 10.0-14.5 % Platelet Count 252 130-400 10^3/uL Mean Platelet Volume 9.8 7.4-10.4 FL Neutrophils (%) (Auto) 77 H 42-75 % Lymphocytes (%) (Auto) 13 12-44 % Monocytes (%) (Auto) 10 0-12 % Eosinophils (%) (Auto) 0 0-10 % Basophils (%) (Auto) 0 0-10 % Neutrophils # (Auto) 4.9 1.8-7.8 X 10^3 Lymphocytes # (Auto) 0.8 L 1.0-4.0 X 10^3 Monocytes # (Auto) 0.6 0.0-1.0 X 10^3 Eosinophils # (Auto) 0.0 0.0-0.3 10^3/uL Basophils # (Auto) 0.0 0.0-0.1 10^3/uL Prothrombin Time 14.0 12.2-14.7 SEC INR Comment 1.0 0.8-1.4 Urine Color YELLOW Urine Clarity CLEAR Urine pH 5.5 5-9 Urine Specific [place] >=1.030 1.016-1.022 Urine Protein 2+ H NEGATIVE Urine Glucose (UA) NEGATIVE NEGATIVE Urine Ketones 1+ H NEGATIVE Urine Nitrite NEGATIVE NEGATIVE Urine Bilirubin 2+ H NEGATIVE Urine Urobilinogen 4.0 < = 1.0 MG/DL Urine Leukocyte Esterase NEGATIVE NEGATIVE Urine RBC (Auto) NEGATIVE NEGATIVE Urine RBC 0-2 /HPF Urine WBC 0-2 /HPF Urine Squamous Epithelial Cells 0-2 /HPF Urine Crystals PRESENT H /LPF Urine Amorphous Sediment RARE SCOTT URATES H /LPF Urine Bacteria TRACE /HPF Urine Casts PRESENT /LPF Urine Hyaline Casts 0-2 H /LPF Urine Mucus SMALL H /LPF Urine Culture Indicated NO Sodium Level 138 135-145 MMOL/L Potassium Level 3.4 L 3.6-5.0 MMOL/L Chloride Level 102 98-107 MMOL/L Carbon Dioxide Level 21 21-32 MMOL/L Anion Gap 15 H 5-14 MMOL/L Blood Urea Nitrogen 11 7-18 MG/DL Creatinine 0.93 0.60-1.30 MG/DL Estimat Glomerular Filtration Rate > 60 BUN/Creatinine Ratio 12 Glucose Level 218 H 70-105 MG/DL Lactic Acid Level 1.55 0.50-2.00 MMOL/L Calcium Level 8.9 8.5-10.1 MG/DL Corrected Calcium 9.1 8.5-10.1 MG/DL Total Bilirubin 0.5 0.1-1.0 MG/DL Aspartate Amino Transf (AST/SGOT) 23 5-34 U/L Alanine Aminotransferase (ALT/SGPT) 10 0-55 U/L Alkaline Phosphatase 73 40-136 U/L Total Protein 7.1 6.4-8.2 GM/DL Albumin 3.7 3.2-4.5 GM/DL Thyroid Stimulating Hormone (TSH) 2.06 0.35-4.94 UIU/ML Free Thyroxine 1.07 0.70-1.48 NG/DL My Orders Orders - MANUEL KIMBLE APRN Cbc With Automated Diff (08/13/19 11:08) Comprehensive Metabolic Panel (08/13/19 11:08) Ua Culture If Indicated (08/13/19 11:08) Chest 1 View, Ap/Pa Only (08/13/19 11:08) Ct Head Wo (08/13/19 11:08) Protime With Inr (08/13/19 11:08) Blood Culture (08/13/19 11:08) Lactic Acid Analyzer (08/13/19 11:08) Ns Iv 500 Ml (Sodium Chloride 0.9%) (08/13/19 11:15) Thyroid Stimulating Hormone (08/13/19 11:14) Free T4 (Free Thyroxine) (08/13/19 11:14) Vital Signs/I&O 08/13/19 10:50 Temp 36.7 Pulse 65 Resp 24 B/P (MAP) 129/70 (89) Pulse Ox 97 Capillary Refill : Departure Communication (Admissions) Spoke with the , she advised that she would like to keep him at home and out of the hospital if at all possible. Spoke with Dr. Villasenor, agrees with plan of care. Impression Primary Impression: Dementia Qualified Codes: F03.91 - Unspecified dementia with behavioral disturbance Disposition: 01 HOME, SELF-CARE Condition: Stable Departure-Patient Inst. Decision time for Depature: 12:29 Referrals: GLENIS VILLASENOR DO (PCP/Family) Primary Care Physician Patient Instructions: Dementia (DC) Add. Discharge Instructions: 1. Call Dr. Villasenor for further guidance. Return to ER for any concerns. All discharge instructions reviewed with patient and/or family. Voiced understanding. Copy Copies To 1: GLENIS VILLASENOR PETER J P[employer]ATCH[employer] MANAGER Aug 13, 2019 11:23
--- NOTE | 2019-08-13 11:23 | NUR ---
PER PHONE STATES MEDS UP TO DATE
[2019-08-13 11:30] LABS: ALBUMIN 3.7 GM/DL (3.2-4.5); BILIRUBIN,URINE 2+ (NEGATIVE); CHLORIDE 102 MMOL/L (98-107); POTASSIUM 3.4 MMOL/L (3.6-5.0); RBC,URINE 0-2 /HPF; SODIUM 138 MMOL/L (135-145)
[2019-08-13 11:31] LABS: AMORPHOUS SEDIMENT,UR RARE AMOR URATES /LPF; BACTERIA,URINE TRACE /HPF; HYALINE CASTS, URINE 0-2 /LPF; SQUAMOUS EPITHELIAL CELL,UR 0-2 /HPF; WBC,URINE 0-2 /HPF
[2019-08-13 11:32] LABS: CALCIUM 8.9 MG/DL (8.5-10.1)
[2019-08-13 11:33] LABS: GLUCOSE 218 MG/DL (70-105); TOTAL PROTEIN 7.1 GM/DL (6.4-8.2)
[2019-08-13 11:34] LABS: CARBON DIOXIDE 21 MMOL/L (21-32)
[2019-08-13 11:35] LABS: BILIRUBIN,TOTAL 0.5 MG/DL (0.1-1.0)
[2019-08-13 11:36] LABS: ALKALINE PHOSPHATASE 73 U/L (40-136); CREATININE SERUM 0.93 MG/DL (0.60-1.30); GFR ESTIMATED > 60
[2019-08-13 11:37] LABS: BUN/CREATININE RATIO 12
[2019-08-13 11:39] LABS: ALANINE AMINOTRANSFERASE 10 U/L (0-55)
[2019-08-13 12:00] LABS: FREE T4 (FREE THYROXINE) 1.07 NG/DL (0.70-1.48)
--- NOTE | 2019-08-13 12:20 | Diagnostic Imaging Report ---
INDICATION: Altered mental status. TECHNIQUE: Single view chest 12:17 PM. CORRELATION STUDY: 07/09/2018 FINDINGS: Prior sternotomy and coronary artery bypass changes. Heart size and mediastinal configuration are generally stable. Vasculature is slightly prominent. Some increased pulmonary parenchymal densities are noted particularly at the lung bases and perihilar region. May reflect underlying superimposed edema versus areas of infiltrate. Most pronounced at the right lower lung. Probable trace effusions. IMPRESSION: 1. Poststernotomy changes. Overall appears to be developed some vascular congestion since prior study. 2. Superimposed areas of perihilar and basilar densities may be reflective of asymmetric edema with possibly superimposed infiltrate particularly at the right lung base not excluded. Follow-up imaging if clinically warranted. Dictated by: Dictated on workstation # [id number]
--- NOTE | 2019-08-13 12:22 | Diagnostic Imaging Report ---
PROCEDURE: CT head without contrast. TECHNIQUE: Multiple contiguous axial images were obtained through the brain without the use of intravenous contrast. Auto Exposure Controls were utilized during the CT exam to meet ALARA standards for radiation dose reduction. INDICATION: Altered mental status Comparison made with prior examination from 04/16/2016. FINDINGS: There is prominence of the ventricles and sulci. There is no hydrocephalus or cerebral edema. There is no midline shift or mass-effect. There is no intracranial mass, hemorrhage, or extra-axial fluid collection. There is some diffuse decreased attenuation of the periventricular white matter which is nonspecific. The visualized paranasal sinuses and mastoid air cells are clear. There are no regional areas of decreased attenuation appreciated to suggest an acute CVA. IMPRESSION: 1. No acute intracranial process. 2. Age-appropriate atrophy. 3. Decreased attenuation of the periventricular white matter which is nonspecific, however, likely reflects senescent change and/or chronic small vessel ischemic disease. If there is high clinical concern for an acute CVA further evaluation with MRI should be considered Dictated by: Dictated on workstation # [id number]
[2019-08-13 12:37] VITALS: BP 129/70
--- NOTE | 2019-08-13 12:37 | NUR ---
PT TAKEN OUT TO IN VAN, PT ABLE TO AMBULATED FROM W/C TO VAN W MINIMAL ASSISTANCE. HOME INSTRUCTIONS GIVEN TO .
== END 2019-08-13 12:37 | disposition home or self-care (01) ==
LOC: ER 11:06
DX: F03.90 Unspecified dementia, unspecified severity, without behavioral disturbance, psychotic disturbance, mood disturbance, and anxiety (principal); G47.30 Sleep apnea, unspecified; I25.10 Atherosclerotic heart disease of native coronary artery without angina pectoris; I10 Essential (primary) hypertension; E11.40 Type 2 diabetes mellitus with diabetic neuropathy, unspecified; M19.91 Primary osteoarthritis, unspecified site; E03.9 Hypothyroidism, unspecified; Z95.1 Presence of aortocoronary bypass graft; Z85.46 Personal history of malignant neoplasm of prostate
CPT/HCPCS: 36415; 70450; 71045; 80053; 81000; 83605; 84439; 84443; 85025; 85610; 87040